=== PATIENT | female | born 1980 | race Two or more races ===

== ENCOUNTER 2022-03-21 09:35 | Emergency (ER) | payer MEDICAID, OTHER ==
[~2022-03-21] VITALS: Ht 172.7 cm; Wt 105.0 kg
[2022-03-21] MEDS ORDERED: LORazepam 0.5 MG TAB PO ONE (10:00)
[2022-03-21 11:16] VITALS: BP 157/93
== END 2022-03-21 11:22 | disposition home or self-care (01) ==
LOC: ER 09:35
DX: F41.9 Anxiety disorder, unspecified (principal)